=== PATIENT | male | born 1965 | race Caucasian/White ===

== ENCOUNTER 2019-09-23 15:02 | Inpatient (IN) ==
[2019-09-23 15:44] LABS: BASO# 0.03 X1000 (0.0-0.2); BASO% 0.2 % (0.0-0.8); EOS# 0.12 X1000 (0.0-0.7); EOS% 0.9 % (0.0-10.0); HEMATOCRIT 44.5 % (42.0-52.0); HEMOGLOBIN 15.2 g/dL (14.0-18.0); IMM GRAN# 0.03 X1000 (0.0-0.04); IMM GRAN% 0.2 % (0.0-0.5); LYMPH# 1.01 X1000 (1.2-3.4); LYMPH% 7.6 % (20.5-51.1); MCH 29.7 PG (27-31); MCHC 34.2 g/dL (33-37); MCV 87.1 FL (81-99); MONO% 3.8 % (1.7-9.3); MPV 10.2 FL (7.4-10.4); NEUT# 11.59 X1000 (1.4-6.5); NEUT% 87.3 % (42.2-75.2); PLT 253 X1000 (130-400); RBC 5.11 XMIL (4.7-6.1); RDW 13.2 % (11.5-14.5); WBC 13.28 X1000 (4.8-10.8)
[2019-09-23 15:53] LABS: INR 1.69; PROTIME 20.2 Seconds (11.0-16.0)
[2019-09-23 15:54] LABS: PTT 32.5 Seconds (22.3-41.8)
--- NOTE | 2019-09-23 16:03 | Diag Imaging Result Doc PS360 ---
EXAM: CHEST-1 VIEW HISTORY: POSSIBLE SEPSIS TECHNIQUE: Single view COMPARISON: 08/22/2014 FINDINGS: The lungs are well expanded. The heart is not enlarged. The vessels are not distended. There are no infiltrates. No effusion identified. Left Granuloma. IMPRESSION: No pneumonia Electronically signed by Samir Sam 09/23/2019 4:01 PM
[2019-09-23 16:18] LABS: ALB/GLOB RATIO 1.6; ALBUMIN 4.6 g/dL (3.5-5.0); CALCIUM 9.2 mg/dL (8.8-10.2); CREATININE 1.3 mg/dL (0.7-1.2); POTASSIUM 4.1 mmol/L (3.5-5.1); TOTAL BILIRUBIN 0.62 mg/dL (0.20-1.00); TOTAL PROTEIN 7.4 g/dL (6.3-8.3)
[2019-09-23] MEDS ORDERED: ROCEPHIN 2 GM in NS 50 ML IV ONE (16:26)
[2019-09-23] MEDS ORDERED: VANCOMYCIN 1 GM/NS 1 GM/250 ML IVPB IV ONE (16:27)
[2019-09-23 16:41] LABS: CK-MB 2.11 ng/mL (0.0-5.0)
[2019-09-23 16:41] LABS: URINE SOURCE CLEAN CATCH
[2019-09-23 16:44] LABS: UR EPITHELIAL CELLS <10 /HPF (<10); URINE BACTERIA NEGATIVE /HPF; URINE RBC <10 /HPF (<10); URINE WBC <10 /HPF (<10)
[2019-09-23 16:45] LABS: BILIRUBIN URINE NEGATIVE (NEGATIVE); BLOOD URINE NEGATIVE (NEGATIVE); COLOR YELLOW; GLUCOSE URINE NEGATIVE (NEGATIVE); KETONE URINE NEGATIVE (NEGATIVE); LEUKOCYTES URINE NEGATIVE (NEGATIVE); NITRITE URINE NEGATIVE (NEGATIVE); PH URINE 5.5; PROTEIN URINE NEGATIVE (NEGATIVE); SP GRAVITY URINE 1.017; TURBIDITY URINE CLEAR (CLEAR); UROBILINOGEN URINE NORMAL (NORMAL)
[2019-09-23] MEDS ORDERED: TYLENOL PO ONE (16:59)
[2019-09-23] MEDS ORDERED: NS 1,000 ML IV ONE (16:59)
--- NOTE | 2019-09-23 18:37 | PROVIDER DOCUMENTATION ---
This chart was entered by Leti Gill Scribe, acting as scribe for Ruben Santiago MD. HPI-General Adult - General Chief Complaint: SEPSIS ALERT - D Stated Complaint: LT GROIN PAIN,CHILLS Time Seen by Provider: 09/23/19 16:20 Source: patient Allergies/Adverse Reactions: Patient Allergies Allergy/AdvReac Type Severity Reaction Status Date / Time No Known Allergies Allergy Verified 09/23/19 16:04 Home Medications: Home Medication List Medication Instructions Recorded Confirmed Last Taken Type Rivaroxaban [Xarelto] 20 mg PO DAILY 07/03/18 09/23/19 09/23/19 History - History of Present Illness -Gen Adult Nature of Presenting Problems: Patient is a 53 year old male who presents with left inner thigh pain. States thigh pain radiates to left lower leg. Report fever and chills with pain. States symptoms started yesterday. History of DVT and is on Xarelto. Location of Pain/Injury: reports: other (left inner thigh) Pain Radiation: reports: legs (lower) (left) Quality of Pain: reports: aching Severity: reports: moderate Onset/Duration: reports: 24 hours ago Timing: reports: still present, getting worse Context/Activities at Onset: reports: light activity Associated Symptoms: reports: fever/chills Similar Symptoms Previously?: Yes Recently seen or treated by another doctor?: No Review of Systems - Adult - REVIEW OF SYSTEMS - ADULT Constitutional: reports: see HPI, chills, fever. denies: fatique Eyes: reports: no symptoms reported Ears, Nose, Mouth & Throat: reports: no symptoms reported Cardiovascular: reports: no symptoms reported Respiratory: reports: no symptoms reported Gastrointestinal: reports: no symptoms reported Genitourinary: reports: no symptoms reported Musculoskeletal: reports: see HPI, other (left inner thigh pain). denies: back pain, neck pain Integumentary: reports: no symptoms reported Neurological: reports: no symptoms reported Psychiatric: reports: no symptoms reported Endocrine: reports: no symptoms reported Hematologic/Lymphatic: reports: no symptoms reported Allergic/Immunologic: reports: no symptoms reported All Other Systems: Reviewed and Negative Past History - Adult - PAST MEDICAL HISTORY-ADULT Review of Records: reports: Old Records Reviewed, Nursing Assessment Review, Medications Reviewed, Social history reviewed & non-contributory. Major Childhood Illnesses: reports: denies history Cardiovascular: reports: denies history, other (hx of DVT left leg) Respiratory: reports: denies history Gastrointestinal: reports: denies history Obstetrical/Gynecological: reports: denies history Genitourinary: reports: denies history Musculoskeletal: reports: denies history Neurological: reports: denies history Endocrine/Immune: reports: denies history Other Conditions: reports: denies history - PRIOR SURGERIES/PROCEDURES Surgical/Procedure History: reports: reviewed, not pertinent, cholecystectomy - PRIOR HOSPITALIZATIONS Prior Hospitalizations: reports: for other non-related - IMMUNIZATION STATUS Childhood Immunizations: See Nurse Assessment Flu Vaccine: See Nurse Assessment - FAMILY HISTORY Family History: reviewed, not pertinent - SOCIAL HISTORY Smoking: denies Substance Use: denies Physical Exam-General - PHYSICAL EXAM-ADULT Initial Vital Signs Reviewed: Yes - CONSTITUTIONAL General Appearance: alert, no apparent distress. negative: lethargic - HEAD, EARS, NOSE, MOUTH & THROAT HENMT: normocephalic/atraumatic, moist mucous membranes. negative: angioedema - RESPIRATORY Respiratory: chest non-tender, lungs clear, normal breath sounds. negative: crackles, rhonchi - CARDIOVASCULAR Cardiovascular: normal peripheral pulses, tachycardia. negative: systolic murmur - GASTROINTESTINAL (ABDOMEN) Abdominal Exam: normal bowel sounds, non tender, soft. negative: guarding, hernia - GENITOURINARY Male Genitalia: normal genitalia, no hernia. negative: erythema - MUSCULOSKELETAL Extremity: tenderness (left proximal medial thigh. femoral triangle.), other (dilated varicose veins to left medial thigh. patient states dilated varicose veins have been present for years.). negative: deformity, erythema Peripheral Pulses: dorsalis-pedis (L): 3+ - SKIN Integumentary: normal color, normal turgor, warm/dry. negative: diaphoresis, erythema - NEUROLOGIC Neurologic: grossly normal. negative: aphasia, facial droop - PSYCHIATRIC Psych/Mental Status: normal mood/affect, oriented x 3. negative: anxious Progress - PLAN OF CARE/RESULTS Progress/Plan/Lab Results: Vital Signs - 8 hr 09/23/19 15:08 Temperature 102.1 F H Pulse Rate 106 H Respiratory Rate 23 Blood Pressure 168/93 O2 Sat by Pulse Oximetry 96 Laboratory Results - last 24 hr 09/23/19 09/23/19 09/23/19 15:19 15:19 15:19 WBC 13.28 H RBC 5.11 Hgb 15.2 Hct 44.5 MCV 87.1 MCH 29.7 MCHC 34.2 RDW Std Deviation 13.2 Plt Count 253 MPV 10.2 Immature Gran % (Auto) 0.2 Neut % (Auto) 87.3 H Lymph % (Auto) 7.6 L [place] % (Auto) 3.8 Eos % (Auto) 0.9 Baso % (Auto) 0.2 Immature Gran # (Auto) 0.03 Neut # (Auto) 11.59 H Lymph # (Auto) 1.01 L [place] # (Auto) 0.50 Eos # (Auto) 0.12 Baso # (Auto) 0.03 PT INR PTT (Actin FS) Sodium 140 Potassium 4.1 Chloride 103 Carbon Dioxide 26 Anion Gap 11 BUN 19 Creatinine 1.3 H Estimated GFR/1.73 m2 57 BUN/Creatinine Ratio 15 Glucose 113 H Calculated Osmolality 282 Calcium 9.2 Total Bilirubin 0.62 AST 24 ALT 24 Alkaline Phosphatase 109 Creatine Kinase 221 H Troponin T Total Protein 7.4 Albumin 4.6 Globulin 2.8 Albumin/Globulin Ratio 1.6 Plasma Lactate 2.5 H 09/23/19 09/23/19 15:19 15:19 WBC RBC Hgb Hct MCV MCH MCHC RDW Std Deviation Plt Count MPV Immature Gran % (Auto) Neut % (Auto) Lymph % (Auto) [place] % (Auto) Eos % (Auto) Baso % (Auto) Immature Gran # (Auto) Neut # (Auto) Lymph # (Auto) [place] # (Auto) Eos # (Auto) Baso # (Auto) PT 20.2 H INR 1.69 PTT (Actin FS) 32.5 Sodium Potassium Chloride Carbon Dioxide Anion Gap BUN Creatinine Estimated GFR/1.73 m2 BUN/Creatinine Ratio Glucose Calculated Osmolality Calcium Total Bilirubin AST ALT Alkaline Phosphatase Creatine Kinase Troponin T < 0.010 Total Protein Albumin Globulin Albumin/Globulin Ratio Plasma Lactate Orders Category Date Time Status Cardiac Monitoring DIRECTED Care 09/23/19 15:28 Active IV Insertion ORDERED Care 09/23/19 15:28 Active Notify MD of + Sepsis Screen NOW Care 09/23/19 15:28 Active Notify Physician As Ordered Care 09/23/19 15:28 Active CHEST-1 VIEW [RAD] Stat Exams 09/23/19 15:28 Completed BLOOD CULTURE [BLDCUL] Stat Lab 09/23/19 15:28 Uncollected CBC WITH DIFF [HEME] Stat Lab 09/23/19 15:19 Completed CK PROFILE [SP CHEM] Stat Lab 09/23/19 15:19 Results COMPREHENSIVE METABOLIC PANEL [CHEM] Stat Lab 09/23/19 15:19 Results D-DIMER [COAG] Stat Lab 09/23/19 16:08 Ordered LACTATE, PLASMA [CHEM] Lab 09/23/19 18:30 Uncollected LACTATE, PLASMA [CHEM] Lab 09/23/19 21:30 Uncollected LACTATE, PLASMA [CHEM] Q3H Lab 09/23/19 15:19 Completed PROTIME WITH INR [COAG] Stat Lab 09/23/19 15:19 Completed PTT [COAG] Stat Lab 09/23/19 15:19 Completed TROPONIN T Stat Lab 09/23/19 15:19 Completed URINALYSIS W/POSS RFLX CULT [URINALYSIS] Stat Lab 09/23/19 15:28 Uncollected CefTRIAXONE [Rocephin] 2 gm Med 09/23/19 16:26 Active 0.9% Sodium Chloride Inj [Ns] 50 ml IV NOW Vancomycin 1 gm/Ns Med 09/23/19 16:27 Active 1 gm in 250 ml IV NOW Oxygen Device Stat Oth 09/23/19 15:28 Completed Venous U/S Left Leg Stat Ther 09/23/19 16:28 Ordered Result Diagrams: 09/23/19 15:19 09/23/19 15:19 - REASSESSMENT Reassessment #1 Time Reassessed: 17:43 Status: unchanged (pt has old, organized clot per US, but no acute clot. pt has been given empiric abx coverage. will discuss w/ Dr. Kiser.) - XRAY 1 XRAY Study: Chest Impression: See EMR Report ( EXAM: CHEST-1 VIEW HISTORY: POSSIBLE SEPSIS TECHNIQUE: Single view COMPARISON: 08/22/2014 FINDINGS: The lungs are well expanded. The heart is not enlarged. The vessels are not distended. There are no infiltrates. No effusion identified. Left Granuloma. IMPRESSION: No pneumonia Electronically signed by Samir Sam 09/23/2019 4:01 PM 09/23/19 1601 Interpreting Physician: Samir Sam MD Dictated Date/Time: 09/23/19 1600 cc: Ruben Santiago MD; Renan Kiser MD) - CONSULTS/PCP/HOSPITALIST Notification #1 *Consult/PCP/Hospitalist*: Margi Time Discussed: 18:30 Consult Disposition: Will see in ED Departure - Departure Date of Disposition Decision: 09/23/19 Time of Disposition Decision: 18:36 DIAGNOSIS: Acute pain of left lower extremity, Fever Disposition: ADMITTED INPATIENT 09 Certified Medical Emergency: Emergent Condition: Stable Referrals and Follow-Ups: Renan Kiser MD [Primary Care Provider] - - Critical Care Note This patient required my direct & personal management of CC.: No Attestation - Physician/ MILDRED Attestation The physician spent face to face time with patient:: Yes Advanced Practice Provider documentation review:: Supervising physician onsite and consulted in the evaluation and care of this patient. The physician did have a face to face encounter with the patient. This chart was documented by the indicated scribe, (Leti Gill Scribe) and accurately reflects the services I performed and decisions made by me, Ruben Ring MD, as attested by the provider's signature.
--- NOTE | 2019-09-23 19:44 | HISTORY AND PHYSICAL ---
HISTORY OF PRESENT ILLNESS: This is a 53-year-old patient of mine. He had an osteoma discovered in 1983 and that was resected and then November 1984 his left femur broke and he had a summer placed from his left hip down to his knee. He has done well with this. 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 He has been on Coumadin for several years and 2 years ago was changed to Xarelto which he has been faithful in taking. He otherwise has really no significant medical problems. He was admitted back in 08/22/2014. He had eaten a fish sandwich and then shortly after had squeezing-type chest pain and workup was unremarkable. He did have some cholelithiasis and suspected cholecystitis. He underwent laparoscopic cholecystectomy for acute calculous cholecystitis and that was on 08/23/2014. He reports that on Friday of this week, today is , he was watching TV about 10:30 and noted he had chills and just could not get warm. He went to bed that night and sweat quite a bit and woke up Friday, felt good, had a pretty good day on Friday and then this morning, he developed some pain right below his left femoral triangle. He said on Friday, there was a little bit of discomfort in the left lateral hip, but the pain was excruciating 09/02 and really could not get any relief and once again most of the day today he has felt chilled, could not get warm. When he got to the emergency room temperature was a 103 degrees. He is tender right below that left femoral triangle but there is no sign of erythema or cellulitis or fluctuance that I can appreciate. He had an ultrasound done on that left leg. I cannot find any sign of new deep venous thrombosis. His D-dimer was negative. Chest x-ray showed no pneumonia or infiltrate. White count was a little elevated at 13,280, hematocrit 44, platelet count 253,000. Electrolytes: Sodium 140, potassium 4.1, chloride 103, BUN 19, creatinine 1.3, blood sugar 113, calcium 9.2, AST 24, ALT 24, alkaline phosphatase 109, albumin was 4.6, lactate level is 2.5. PAST MEDICAL HISTORY: He has a father who has had lymphoma. Otherwise unremarkable. SOCIAL HISTORY: He is a dentist here in town. Negative for alcohol or tobacco. REVIEW OF SYSTEMS: General: In general, no weight gain or loss. No fever or chills. HEENT: Unremarkable. Respiratory: No increased work of breathing or dyspnea. Cardiovascular: No chest pain or tachy palpitation Gastrointestinal and Genitourinary: No gross hematuria or dysuria. Endocrinologic/hemologic: No significant history. He has had a history of DVT in the left leg. History of a summer placed back in 1984 from his left from his left hip down to his knee interfemoral summer. PHYSICAL EXAMINATION: VITAL SIGNS: Temperature was a 103 degrees, pulse 105, respirations 20, blood pressure 178/84, pupils are equal and round. LUNGS: Clear in all lung adair. CARDIOVASCULAR: Regular rhythm and rate without murmur or S3. ABDOMEN: Soft, nondistended, nontender. SKIN: Warm and dry. Weight 215 pounds, height 5 feet 8 inches. EXTREMITIES: He is tender right below that left femoral triangle and it feels like it there is a palpable venous cord going down and is tender along the length a good 6-9 inches. It was very uncomfortable doing the ultrasound. LABORATORY DATA: White count 31228, hematocrit 44, platelet count 253,000. Sodium 140, potassium 4.1, chloride 103, BUN 19, creatinine 1.3. AST 24, ALT was 24. Urinalysis unremarkable. Chest x- ray was clear. No infiltrates. ASSESSMENT AND PLAN: 1. Fever and tender along the left medial thigh right below the femoral triangle and I wonder if he has an infected venous thrombosis or thrombophlebitis. I am going to put him on vancomycin to cover for gram-positive streptomycin and staphylococcus organisms and also cover with Rocephin, which has good penetration for gram-negative. It has been a long time since she has had the summer placed and I am hoping there is no significant infection that is involving the hardware. He is going to need something for pain for pain control. I gave him [place] 10 mg p.o. q. 4 hours p.r.n. and for severe pain he can have Dilaudid. I am going to ask Orthopedic and Infectious Disease to help evaluate this. We will keep him on Xarelto. 2. History of deep venous thrombosis, chronic deep venous thrombosis in the left leg. No sign of new venous thrombosis. cc: Renan Kiser MD
[2019-09-23] MEDS ORDERED: NORCO-7.5 PO PRN (19:59)
[2019-09-23] MEDS ORDERED: VANCOMYCIN IV PER PHARMACY MISC SCH (19:59)
[2019-09-23] MEDS ORDERED: ZOFRAN IV PRN (19:59)
[2019-09-23] MEDS: VANCOMYCIN 2,500 MG in NS 500 ML IV ONE ×2 (22:15→22:16)
[2019-09-23] MEDS: TYLENOL PO PRN (22:16)
[2019-09-23] MEDS: NS 1,000 ML IV SCH (22:17)
[2019-09-24] MEDS: ROCEPHIN 1 GM in NS 50 ML IV SCH ×2 (04:26→20:31)
[2019-09-24 06:32] LABS: BASO# 0.03 X1000 (0.0-0.2); BASO% 0.2 % (0.0-0.8); HEMATOCRIT 40.4 % (42.0-52.0); IMM GRAN# 0.03 X1000 (0.0-0.04); IMM GRAN% 0.2 % (0.0-0.5); LYMPH# 0.78 X1000 (1.2-3.4); LYMPH% 6.4 % (20.5-51.1); MCH 30.2 PG (27-31); MCHC 34.7 g/dL (33-37); MCV 87.3 FL (81-99); MONO# 0.55 X1000 (0.11-0.59); MONO% 4.5 % (1.7-9.3); NEUT# 10.77 X1000 (1.4-6.5); NEUT% 88.7 % (42.2-75.2); PLT 209 X1000 (130-400); RBC 4.63 XMIL (4.7-6.1); WBC 12.16 X1000 (4.8-10.8)
[2019-09-24 06:55] LABS: AGAP 13; ALB/GLOB RATIO 1.2; ALBUMIN 3.5 g/dL (3.5-5.0); ALKALINE PHOSPHATASE 86 U/L (32-122); BUN 14 mg/dL (8-22); CALCIUM 8.6 mg/dL (8.8-10.2); CHLORIDE 107 mmol/L (98-107); COSMO 286; CREATININE 1.2 mg/dL (0.7-1.2); ESTIMATED GFR > 60; GLUCOSE 110 mg/dL (70-104); GOT 22 U/L (10-34); GPT 21 U/L (10-44); MAGNESIUM 1.8 mg/dL (1.5-2.7); POTASSIUM 3.9 mmol/L (3.5-5.1); SODIUM 143 mmol/L (136-145); TCO2 23 mmol/L (25-35); TOTAL BILIRUBIN 0.89 mg/dL (0.20-1.00); TOTAL PROTEIN 6.4 g/dL (6.3-8.3)
[2019-09-24 07:21] LABS: LYMPHS 4 % (21-51); MONO 4 % (1-9); SEGS 92 % (42-75)
[2019-09-24 07:23] LABS: INR 1.32; PROTIME 16.6 Seconds (11.0-16.0)
[2019-09-24 07:24] LABS: PTT 32.7 Seconds (22.3-41.8)
[2019-09-24] MEDS: PRILOSEC PO SCH (08:22)
[2019-09-24] MEDS: XARELTO PO SCH (08:23)
--- NOTE | 2019-09-24 10:11 | Diag Imaging Result Doc PS360 ---
EXAM: FEMUR 1 VIEW LEFT HISTORY: femur osteomyelitis TECHNIQUE: Two views COMPARISON: None. FINDINGS: There is a summer through the femoral shaft. The femoral head is not dislocated. No acute fracture. Appearance in the mid shaft with cortical thickening and areas of lucency appear to be a healed fracture. However, lucent areas could be secondary to an infectious process. Electronically signed by Samir Sam 09/24/2019 10:08 AM
--- NOTE | 2019-09-24 10:22 | PROGRESS NOTE ---
DATE: 09/24/2019 SUBJECTIVE: Mr. Briggs had a better night, less tender in that left thigh. OBJECTIVE: His temperature went down, temperature 99.3 degrees, pulse 80, respirations 20, and blood pressure 130/73. Pupils are equal and round. Lungs are clear in all lung adari. Cardiovascular regular rhythm and rate without murmur or S3. Abdomen is soft. Skin is warm and dry. LABORATORY: Urine output was 2100 mL. [place] [address], hematocrit 40, and platelet count 209,000. Sodium 143, potassium 3.9, chloride 107, bicarb 23, BUN 14, and creatinine 1.2. ASSESSMENT AND PLAN: Febrile illness, very tender around the left thigh. Suspect infection. Plan is to get an x-ray. He cannot get a CAT scan because of the metal summer in the leg. We asked Orthopedic and Infectious Disease to help evaluate. There was concern about possible infection extending to the summer. Continue vancomycin and ceftriaxone. cc: Renan Kiser MD
--- NOTE | 2019-09-24 14:18 | INFECTIOUS DISEASE CONSULT REP ---
DATE: 09/24/2019 CONCLUSIONS: The patient is admitted to the hospital with intense pain in his left groin going down his femur to the knee. He also has fever. He previously has had a femoral summer put in his left leg. He has also had a deep venous thrombosis in the leg. He may have osteomyelitis of the femur and possible femur summer infection. RECOMMENDATIONS: The patient has been started on vancomycin and Rocephin, and already his temperature is coming down, and his white count is coming down so I would suggest continuing it. I have ordered an x-ray of the left femur, and also a bone scan involving the left femur. DISCUSSION: The patient tells me that about 3 days ago he started having intense pain in the left groin, and it radiated down the femur into his knee. He also had fever. The patient had a bone tumor removed from his leg in 1983. In 1984, he had a femoral summer put in the leg. The patient has had varicose veins develop in his leg after the summer was put in. In 1996, he came in with pain secondary to deep venous thrombosis in his legs. He also had fever. PAST MEDICAL HISTORY/REVIEW OF SYSTEMS: Eyes and Ears: No trouble seeing or hearing. Neck: No stiffness. Respiratory: No cough or shortness of breath Cardiac: No chest pain or palpitations. GI: No nausea, vomiting, or diarrhea. The patient since being in the hospital has not passed a stool. Genitourinary: No dysuria or flank pain. Bones, joints, muscles: See present illness. Neurologic: No seizures. No loss of motor or sensory function. Integument: No rash PREVIOUS HOSPITALIZATIONS AND OPERATIONS: He has had a bone tumor removed in his leg in 1983. In 1984, a femoral summer was put in. The patient has been admitted to the hospital in the past as mentioned above with pain in his leg in 1996, and this was thought to be secondary to deep venous thrombosis. The patient has also had a cholecystectomy. PAST MEDICAL HISTORY: Positive for a benign bone tumor, and deep venous thrombosis of the left leg. INFECTIOUS DISEASE HISTORY: Negative for pneumonia and UTI. FAMILY HISTORY: Positive for hypertension, atrial fibrillation, and cancer. SOCIAL HISTORY: The patient is a dentist. [place] He is single. He does not have any pets at home. ALLERGIES: He has no known allergies. MEDICATIONS: At home, he takes Xarelto. SOCIAL HISTORY: The patient is a dentist. DIAGNOSTIC: The patient's chest x-ray shows no infiltrate. [place] [address], hemoglobin is 14, and platelet count of 209,000. Liver function studies are normal. Urinalysis was negative for bacteria or white blood cells. Blood cultures are pending. PHYSICAL EXAMINATION: Vital Signs: Temperature is 99.3 degrees, pulse 82, respirations 20, and blood pressure 130/73. The patient is 5 feet 8 inches tall, and weighs 217 pounds. General: This is an obese, but otherwise healthy-appearing, middle-aged male. He is in no acute distress at this time. Head/eyes/ears/nose/throat: He can hear my spoken words and see near objects. There is no white patches in his mouth. Neck: No meningismus. Lungs: Clear to auscultation. Cardiovascular: Regular heart rate. Abdomen: Soft and nontender. Extremities: The patient's left leg to me looks the same size as the right. It is soft. It is not indurated. It is not erythematous, and currently it is not tender. Neurologic: The patient is alert. He can move his extremities. There is no tremor. His sensation is intact to touch. His memory as regarding his medical history is intact. Thank you for the consult. cc: MD Renan Holden MD MTDAndrew
[2019-09-24] MEDS: TYLENOL PO PRN (16:16)
[2019-09-24] MEDS: NS 1,000 ML IV SCH (16:17)
--- NOTE | 2019-09-24 16:28 | Diag Imaging Result Doc PS360 ---
3 PHASE BONE SCAN - 09/24/2019 INDICATION: L femur osteomyelitis TECHNIQUE: Three phase bone scan of the pelvis and femurs. 27.5 mCi of MDP was administered. COMPARISON: X-rays from earlier today FINDINGS: On the immediate arterial images, there is significant abnormal radiotracer in the region of the left common femoral artery. This raises the concern for arterial rupture. There is no additional activity appearance on the delayed phase images. IMPRESSION: Cannot exclude arterial hemorrhage of the left common femoral artery. Further imaging may be indicated. This report was discussed with CONRAD Katz on 09/24/2019 at 4:19 PM and was readback. Electronically signed by Jaguar Elena 09/24/2019 4:26 PM
[2019-09-24] MEDS: VANCOMYCIN 2,500 MG in NS 500 ML IV ONE (16:56)
--- NOTE | 2019-09-24 19:34 | ORTHOPAEDICS CONSULTATION ---
DATE: 09/24/2019 REQUESTING PHYSICIAN: Renan Kiser MD REASON FOR CONSULTATION: Left groin pain, concern for hardware infection. PAST MEDICAL HISTORY: 1. 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 2. Chronic DVT, left lower extremity. He has been treated on Coumadin since around 1996 when he 1st developed DVT and has been on Xarelto for the last 2 years. PAST SURGICAL HISTORY: 1. Left femur benign bone tumor curettage. 2. Closed reduction intramedullary nailing of left midshaft femur fracture by Dr. Villar in 1984. 3. Cholecystectomy. MEDICATION: Xarelto. ALLERGIES: No known drug allergies. SOCIAL HISTORY: Patient lives in [place]. 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 Denies any tobacco, alcohol use. FAMILY HISTORY: Noncontributory. REVIEW OF SYSTEMS: Negative other than what was in history of present illness. CHIEF COMPLAINT: Left groin pain. 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 The patient originally underwent curettage of a benign bone tumor in 1983. He then developed a fracture in his femur in 1984 and underwent intramedullary nailing with Dr. Villar. In 1996, he developed a blood clot in this leg and has been treated with anticoagulation since that time. The patient states that his left leg stays warm and swollen compared to the right, however, typically is not painful. He reports this pain starting 1 day prior to presentation and getting much worse in his left groin. He denies any drainage from the area. He was running a fever, so he thus presented to the hospital. He denies any recent falls, trauma, or other acute inciting events. He denies any bug bites, cuts, or recent infection. Prior to this episode, he has had no issues at all with his femoral hardware and no complaints of left thigh pain. 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 He is awake, alert, oriented x3. He is very polite and cooperative during examination. Vital Signs: Temperature 99.3 degrees, heart rate 82, blood pressure 130/73, respiratory rate 20, O2 saturation 100% on room air. HEENT: Normocephalic and atraumatic. Respiratory: Nonlabored breathing. Cardiovascular: Regular rate and rhythm. Extremities: Examination of left lower extremity shows skin to be intact. Patient has well- healed surgical incisions from his prior intramedullary nailing. He has some fullness and swelling in his groin and appearing perineal area. He has significant tenderness to palpation over his medial aspect of his left groin. No fluctuance. The left leg is warm compared to the right from the thigh all the way down to the foot. He is nontender over the lateral aspect of his thigh. He is nontender to deep palpation laterally directly on his femur. No pain with log roll of left lower extremity. Hip range of motion is good with forward flexion. Internal rotation, external rotation. No joint effusion in the knee. Full knee range of motion. He is nontender over the medial and lateral compartments. His thigh is swollen compared to the contralateral side; however, soft and compressible. Dorsalis pedis pulse is palpable. LABS: White count 12, hematocrit 40, ESR is 25, CRP 115. Urinalysis was negative. Blood cultures pending. IMAGING: AP and lateral of the left femur were obtained demonstrating a well-healed midshaft femur fracture with intramedullary nail in place. Good position of hardware. No signs of cortical disruption or osteolysis throughout the femur. Bone scan was obtained and is pending results. ASSESSMENT: 1. A 53-year-old male with history of intramedullary nailing of left femur fracture who subsequently developed a chronic deep vein thrombosis in the left lower extremity with new onset left groin pain. I think his pain is likely coming from his superficial soft tissue infection versus thrombophlebitis. He is really nontender over the lateral aspect of his femur. X-rays show no signs of osteolysis or concern for chronic osteomyelitis. Given his presentation with 1-day history of pain and the fact he has been significantly improving on his antibiotics over the last 24 hours, I think it is likely a soft tissue type infection. We will follow up on the bone scan results. If there is sign of increased uptake in the femur on bone scan and patient does not continue to improve clinically, he may end up needing a hardware removal from the left femur. However, if there is no uptake in the bone and he continues to improve clinically, I think this can be treated with IV antibiotics of the soft tissue infection. No palpable induration or fluctuance over the area. 2. The patient will be weightbearing as tolerated to the left lower extremity. 3. He can continue Xarelto for history of deep vein thrombosis and deep vein thrombosis prophylaxis. 4. We will follow up with Infectious Disease recommendations. Currently, on vancomycin and Rocephin. 5. I will continue to follow along with the patient while he is in-house. Please call with any questions. Thank you for the consultation. cc: Renan Kiser MD
[2019-09-24] MEDS: VANCOMYCIN 2,000 MG in NS 500 ML IV SCH (22:15)
[2019-09-25] MEDS: PRILOSEC PO SCH (09:00)
--- NOTE | 2019-09-25 09:53 | PROGRESS NOTE ---
DATE: 09/25/2019 Mr. Briggs is feeling much better. The pain is almost completely relieved. OBJECTIVE: Vital Signs: He remains afebrile, temperature 98.5 degrees, pulse 68, respirations 20, blood pressure 144/91. HEENT: Pupils are equal and round. Lungs: Are clear in all lung adair. Cardiovascular: Regular rhythm and rate without murmur or S3. Abdomen: Is soft. Skin: Is warm and dry. Urine output is 6100 mL. ASSESSMENT AND PLAN: 1. History of intramedullary nailing of left femoral fracture. Subsequently developed chronic deep venous thrombosis in the left lower extremity and came in with new onset of left groin pain and fever. I suspect this is superficial infection and I guess possible hematoma down in that area. He clinically is better with antibiotics. Bone scan and x-ray do not show bone involvement. So, continue present antibiotics another 48 hours and hopefully can be discharged on Friday. We will discuss with Dr. Servin what type of antibiotics and how long we need to keep him on antibiotic. 2. History of DVT, chronic left lower extremity venous insufficiency. He is on Xarelto. Continue vancomycin and ceftriaxone. 3. He has had a bowel movement. He is eating well and pain is diminished, in fact he has very little pain at this point. cc: Renan Kiser MD
[2019-09-25] MEDS: XARELTO PO SCH (10:58)
--- NOTE | 2019-09-25 14:05 | ORTHOPAEDICS PROGRESS NOTE ---
DATE: 09/25/2019 I saw Mr. Briggs today for follow-up of his bone scan. The bone scan was essentially negative in terms of any joint or bony infection. There is no evidence of recurrence of lesion, stress fracture, or bony involvement. 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 I will be available to see him on an as-needed basis. At this point, there does not appear to be any orthopedic involvement. We will see him back on an as-needed basis in the clinic if needed. cc: MD Renan Ruiz MD
[2019-09-25] MEDS: NS 1,000 ML IV SCH (19:42)
[2019-09-25] MEDS: ROCEPHIN 1 GM in NS 50 ML IV SCH (20:38)
[2019-09-25] MEDS: VANCOMYCIN 2,000 MG in NS 500 ML IV SCH (21:28)
--- NOTE | 2019-09-26 07:54 | PROGRESS NOTE ---
DATE: 09/26/2019 SUBJECTIVE: Mr. Briggs feels better. The tenderness is diminished. His main tenderness is down in his left high medial calf. The tenderness in the left groin is greatly diminished. OBJECTIVE: Vital Signs: He remains afebrile, temperature 98.5 degrees, pulse 74, respirations 20, blood pressure 154/72. HEENT: Pupils are equal and round. Lungs: Clear in all lung adair. Cardiovascular: Regular rhythm and rate without murmur or S3. Urine output was 4800 mL. ASSESSMENT AND PLAN: 1. History of intramedullary nailing of left femoral fracture and subsequent chronic deep venous thrombosis. I suspect he has thrombophlebitis, and soft tissue infection does not appear to be involving the joint or the summer, and he is clinically better. Hopefully, can let him go home tomorrow. His cultures are negative, so will need to start on antibiotic. 2. History of deep venous thrombosis, extremity venous insufficiency. He is on Xarelto. 3. He had a bowel movement. No complaints of constipation, so hopefully home tomorrow. cc: Renan Kiser MD
[2019-09-26] MEDS: XARELTO PO SCH (09:02)
[2019-09-26] MEDS: NS 1,000 ML IV SCH (09:02)
[2019-09-26] MEDS: PRILOSEC PO SCH (09:02)
[2019-09-26] MEDS: ROCEPHIN 1 GM in NS 50 ML IV SCH (20:24)
[2019-09-26] MEDS: VANCOMYCIN 2,000 MG in NS 500 ML IV SCH (22:27)
[2019-09-27] MEDS: NS 1,000 ML IV SCH (07:51)
[2019-09-27] MEDS: XARELTO PO SCH (08:35)
[2019-09-27] MEDS: PRILOSEC PO SCH (08:35)
--- NOTE | 2019-09-27 09:26 | PROGRESS NOTE ---
DATE: 09/27/2019 SUBJECTIVE: Mr. Briggs had blood cultures that did grow out gram-positive cocci, so I am going to check an echocardiogram to make sure there are no vegetations. He feels good. He has a little tenderness in the left upper medial calf, but none around his groin. OBJECTIVE: Vital Signs: He remains afebrile, temperature 98.4 degrees, pulse 65, respirations 18, blood pressure 172/89. HEENT: Pupils are equal and round. Lungs: Clear in all lung adair. Cardiovascular: Regular rhythm and rate without murmur or S3. Abdomen: Soft. Skin: Warm and dry. Urine output is 3000 mL. ASSESSMENT AND PLAN: 1. History of intramedullary nailing of left femoral fracture, subsequent chronic deep venous thrombosis. Really has not changed. Developed some tenderness in the left groin. Now it is down in his calf, with high fever. We are going to check an echocardiogram to make sure there are no valvular vegetations, and see what the identity is on the cultures. We may need to set him up for intravenous antibiotic. 2. Deep venous thrombosis, left lower extremity. He is on Xarelto. 3. Constipation, which is resolved. cc: Renan Kiser MD
[2019-09-27] MEDS: VANCOMYCIN 2,000 MG in NS 500 ML IV SCH ×2 (10:45→22:05)
--- NOTE | 2019-09-27 12:06 | Extremity Venous Study ---
PROCEDURE NAME: Venous U/S Left Leg - 09/23/2019 CASE THERAPIST: Elizabeth. REQUESTING PHYSICIAN: Dr. Santiago. INDICATION: History of DVT. FINDINGS: The deep and superficial veins of the left lower extremity were visualized along their course. In the left mid superficial femoral vein and popliteal vein, there is chronic-appearing thrombus noted with maintained flow. The remaining vessels are compressible. IMPRESSION: Chronic thrombus in the mid superficial femoral vein and popliteal vein with persistent flow. cc: MD Ruben Fowler MD Allen J. Schmidt, MD
--- NOTE | 2019-09-27 17:26 | INFECTIOUS DISEASE PROGRESS NO ---
DATE: 09/27/2019 PRESENT ILLNESS: The patient came in the hospital with intense pain in his left groin and it went down his femur to the knee and today tells me it is in his calf. He also had fever. The exact etiology of his illness is uncertain to me at this time. MEDICATIONS: The patient is receiving a combination of Rocephin and vancomycin. This is the 5th day of treatment with Rocephin and vancomycin. PHYSICAL EXAMINATION: Vital Signs: Temperature is 98 degrees, pulse 67, respirations 19, blood pressure 160/96. General: This is an obese, middle-aged male. He is in no acute distress. Head/eyes/ears/nose/throat: He can hear my spoken words and see near objects. There is no drainage coming from his nose or ears. Neck: No stiffness. Lungs: Clear to auscultation. Cardiovascular: Regular heart rate. Abdomen: Soft and nontender. Extremities: The left leg is not swollen or erythematous. It is not tender except for a very small amount of pain when I palpated the calf muscles. Neurologic: Patient is alert. He can ambulate without difficulty. There is no tremor. When he did ambulate though he did have some pain in his left leg. LAB AND X-RAY: X-ray of the left leg showed that there was a summer in the femur and there are lucent areas that could possibly be secondary to infection. The bone scan did not mention the patient having osteomyelitis. It did bring up the possibility that there was an arterial rupture in the leg. The patient had 2 blood cultures drawn, one of the 2 is growing a gram-positive coccus which has not yet been identified. ASSESSMENT AND PLAN: The patient had pain in his leg and has a positive blood culture. The blood culture could be a contaminant or a pathogen and there is some question of whether there could be infection in the patient's left leg. The plan now is to continue Rocephin and vancomycin and wait for the identity of the gram-positive coccus in 1 of 2 blood cultures. COMORBIDITIES: The patient did at one time have a deep venous thrombosis in the left leg but he does not seem to have that now. The patient is obese. cc: MD Renan Holden MD
--- NOTE | 2019-09-27 18:39 | ECHO REPORT ---
ORDER DATE: 09/27/2019 INTERPRETING PHYSICIAN: Dr. Torres CLINICAL INDICATIONS: This is a 53-year-old male with suspected endocarditis. M-MODE MEASUREMENTS: Left ventricle end diastole: 4.4 cm. Left ventricle end systole: 3.2 cm. Posterior wall: 1.1 cm. Interventricular septum: 1.1 cm. Left atrium: 4.0 cm. Aortic diameter: 3.1 cm. SUMMARY OF 2-DIMENSIONAL IMAGIN. The left ventricular function is normal. Ejection fraction is 56%. There is no wall motion abnormality. 2. The aortic valve looks grossly normal. Color flow mapping unremarkable. 3. Mitral valve looks grossly normal. Color flow mapping unremarkable. 4. Pulsed wave Doppler of mitral inflow shows normal E/A ratio. 5. Tissue Doppler of septal and lateral mitral annulus averages 9 cm. 6. There is no diastolic dysfunction. 7. The pulmonic valve looks grossly normal. 8. Tricuspid valve is suboptimally visualized. Color flow mapping unremarkable. There is no evidence of vegetation. However, the study is suboptimal. 9. There is no pericardial effusion, mass, and no thrombus. 10.Pulmonary pressure cannot be calculated. 11.There is no aortic stenosis. Clinical correlation is recommended. cc: MD Renan Howell MD
[2019-09-27] MEDS: ROCEPHIN 1 GM in NS 50 ML IV SCH (20:32)
[2019-09-28] MEDS: NS 1,000 ML IV SCH ×2 (05:12→08:32)
[2019-09-28 06:38] LABS: BASO# 0.05 X1000 (0.0-0.2); BASO% 0.7 % (0.0-0.8); EOS# 0.36 X1000 (0.0-0.7); EOS% 5.3 % (0.0-10.0); HEMATOCRIT 41.8 % (42.0-52.0); HEMOGLOBIN 14.2 g/dL (14.0-18.0); IMM GRAN# 0.06 X1000 (0.0-0.04); IMM GRAN% 0.9 % (0.0-0.5); LYMPH# 1.56 X1000 (1.2-3.4); LYMPH% 22.8 % (20.5-51.1); MCH 29.6 PG (27-31); MCV 87.3 FL (81-99); MONO# 0.47 X1000 (0.11-0.59); MONO% 6.9 % (1.7-9.3); NEUT# 4.35 X1000 (1.4-6.5); NEUT% 63.4 % (42.2-75.2); PLT 271 X1000 (130-400); RBC 4.79 XMIL (4.7-6.1); RDW 12.8 % (11.5-14.5); WBC 6.85 X1000 (4.8-10.8)
[2019-09-28 07:06] LABS: AGAP 5; BUN 11 mg/dL (8-22); CALCIUM 8.7 mg/dL (8.8-10.2); CHLORIDE 104 mmol/L (98-107); COSMO 277; CREATININE 1.1 mg/dL (0.7-1.2); ESTIMATED GFR > 60; GLUCOSE 96 mg/dL (70-104); POTASSIUM 4.1 mmol/L (3.5-5.1); SODIUM 139 mmol/L (136-145); TCO2 30 mmol/L (25-35)
[2019-09-28 07:09] VITALS: BP 146/80
[2019-09-28] MEDS: XARELTO PO SCH (08:55)
[2019-09-28] MEDS: PRILOSEC PO SCH (08:55)
--- NOTE | 2019-09-28 10:03 | DISCHARGE SUMMARY ---
ADMISSION DATE: 09/23/2019 DISCHARGE DATE: 09/28/2019 HISTORY AND HOSPITAL COURSE: This is a 53-year-old who had an osteoma discovered in 1983, was resected, and then in 11/1984, his left femur broke while playing volleyball, had a summer placed in his hip, down to his knee. He has done well. He did have a DVT. He has had chronic venous insufficiency in that left leg. He has been on Coumadin for years. Two years ago, put him on Xarelto. He reports that he noted some pain that started in the left medial thigh. It initially was on the outside of the hip, and then on the inside of the hip, and the pain was excruciating, and he had chills and could not get warm. This was on Friday. The following Friday, he felt pretty good, did all right. Then morning, he developed fever again and chills, and the pain was more in the medial thigh, had excruciating pain. Came to the emergency room. He was admitted. Blood cultures were drawn, 1/2 was positive for gram-positive cocci, which did not appear to be Staph aureus, and so suspect that was a contaminant, but plan to treat him. Since we do not have an organism, I am going to treat him with Augmentin broad-spectrum for I think another 2 weeks. Follow back in my office in about a week. The pain is resolved. He has a little bit of pain in the left medial calf. Note that his nuclear bone scan did not reveal any involvement of the femoral summer or the joint itself. Could not exclude arterial hemorrhage in the left femoral artery and possible hematoma. Noninvasives done on admission, chronic thrombus in the mid superficial vein and popliteal vein, but no real change. Orthopedic evaluated. Dr. Servin evaluated as well. We did an echocardiogram with Doppler, and there was no sign of any vegetations. Good left ventricular function. No valvular dysfunction. Ejection fraction 56%. Blood cultures grew out 1/2 gram-positive cocci, which did not appear to be Staph. Will discharge him home. Will put him on Augmentin 875 mg twice a day, and I will give that for another 2 weeks. Follow up in my office in about a week. cc: Renan Kiser MD
== END 2019-09-28 10:17 | disposition home or self-care (01) | DRG 392 ==
LOC: ED 15:02 → EDIPHOLD 19:57 → 4N 20:00
PROVIDERS: ADMIT Emergency Medicine; ATTEND Emergency Medicine